=== PATIENT | female | born 1985 | race Caucasian/White ===

== ENCOUNTER 2022-05-31 10:56 | Emergency (ER) | payer BC, OTHER ==
[~2022-05-31] VITALS: Ht 175.3 cm; Wt 79.2 kg
[2022-05-31 12:02] VITALS: BP 126/85
--- NOTE | 2022-05-31 12:56 | NUR ---
PT AMBULATED TO ER BED 8
--- NOTE | 2022-05-31 13:23 | NUR ---
Dr. Churchill evaluating patient at bedside.
--- NOTE | 2022-05-31 13:36 | NUR ---
36 y/o female bib self with c/o right sided low back pain that radiates to her abdomen x yesterday. Patient reports urinary frequency, urgency, burning and blood when wiping after voiding. Patient denies any fevers or medications. Patient reports chills. Medical History: Denies NKDA
[2022-05-31 14:08] LABS: APPEARANCE,URINE CLEAR (CLEAR); BILIRUBIN,URINE NEGATIVE (NEGATIVE); BLOOD, URINE 3+ (NEGATIVE); COLOR,URINE YELLOW (YELLOW); LEUKOCYTE ESTERASE ,URINE 2+ (NEGATIVE); NITRITE, URINE NEGATIVE (NEGATIVE); UGLUCOSE NEGATIVE (NEGATIVE)
[2022-05-31] MEDS ORDERED: CEPH-588 PO (14:12)
[2022-05-31 14:36] LABS: RBC,URINE 11-20 (MOD) /HPF (0-5)
--- NOTE | 2022-05-31 14:40 | NUR ---
Dr. Hall evaluating patient at bedside.
[2022-05-31 14:50] VITALS: BP 123/74
--- NOTE | 2022-05-31 14:50 | NUR ---
Patient discharged with v/s stable. Written and verbal after care instructions given. Patient alert, oriented and verbalized understanding of instructions. Ambulatory with steady gait. All questions addressed prior to discharge. ID band removed. Patient advised to follow up with PMD. Rx of KEFLEX given. Opportunity to ask questions provided and answered.
--- NOTE | 2022-05-31 14:57 | NUR ---
The patient's care was reviewed and supervised by [facility], RN.
--- NOTE | 2022-06-04 17:36 | NUR ---
LATE ENTRY. RECEIVED POSITIVE URINE CULTURE. FORM GIVEN TO DR CARMICHAEL. TREATMENT APPROPRIATE. FORM PLACED IN BINDER.
== END 2022-05-31 14:50 | disposition home or self-care (01) ==
LOC: MED 10:56
DX: N12 Tubulo-interstitial nephritis, not specified as acute or chronic (principal)
CPT/HCPCS: 81001; 81025; 87086; 99283